=== PATIENT | male | born 1970 | race Caucasian/White ===

== ENCOUNTER 2021-10-30 02:56 | Inpatient (IN) ==
[2021-10-30] MEDS ORDERED: Ondansetron 4 MG/2 ML VIAL IVP PRN (10:40)
[2021-10-30] MEDS ORDERED: Naloxone 0.4 MG/ML INJ IVP PRN (10:40)
[2021-10-30] MEDS: Pantoprazole 40 MG VIAL IVP SCH (18:00)
[2021-10-30] MEDS: *HR* LORazepam 2 MG/ML VIAL IVP PRN (21:34)
[2021-10-31] MEDS ORDERED: QUEtiapine Fumarate 25 MG TABLET PO ONE (01:14)
[2021-10-31 01:25] LABS: Basophils % 0.7 %; Eosinophils # 0.5 K/mcL (0.0-0.6); Eosinophils % 8.9 %; Hematocrit 39.9 % (37.5-50.1); Hemoglobin 12.7 g/dL (12.9-16.9); Immature Granulocytes % 0.2 % (0-4); Lymphocytes # 2.3 K/mcL (0.6-4.6); Lymphocytes % 41.7 %; Mean Corpuscular HGB Conc 31.8 g/dL (31.6-35.5); Mean Corpuscular Hemoglobin 30.2 pg (28.0-33.3); Mean Platelet Volume 10.8 fL (9.4-12.4); Monocytes # 0.6 K/mcL (0.0-1.3); Monocytes % 10.5 %; Neutrophils # 2.1 K/mcL (1.6-8.9); Platelet Count 185 K/mcL (140-400); Red Cell Distribution Width 12.8 % (11.5-14.5); White Blood Count 5.5 K/mcL (4.3-11.1)
[2021-10-31 01:31] LABS: INR 0.9; Prothrombin Time 10.3 Seconds (9.4-12.1)
[2021-10-31 01:44] LABS: Alanine Aminotransferase 9 Units/L (7-52); Albumin 3.6 g/dL (3.5-5.7); Albumin/Globulin Ratio 1.6 (1.1-2.2); Alkaline Phosphatase 59 Units/L (34-104); Aspartate Amino Transferase 11 Units/L (13-39); BUN/Creatinine Ratio 15 (6-26); Bilirubin,Total 0.3 mg/dL (0.3-1.0); Blood Urea Nitrogen 15 mg/dL (6-20); Calcium 9.1 mg/dL (8.6-10.3); Carbon Dioxide 23 mEq/L (23-29); Chloride 107 mEq/L (98-107); Globulin 2.2 g/dL (2.4-3.5); Glucose 102 mg/dL (70-105); Osmolality,Calculated 285 (280-300); Phosphorous 3.3 mg/dL (2.7-4.5); Sodium 137 mEq/L (136-145); Total Protein 5.8 g/dL (6.4-8.9); eGFR For African Americans > 60 (> 60); eGFR For Non-African Americans > 60 (> 60)
[2021-10-31] MEDS: Pantoprazole 40 MG VIAL IVP SCH ×2 (05:40→17:34)
[2021-10-31] MEDS ORDERED: Bisacodyl 10 MG RECTAL SUPPOSITORY RC PRN (14:14)
[2021-10-31] MEDS ORDERED: haloperidoL 1 MG TABLET PO PRN (16:19)
[2021-10-31] MEDS ORDERED: *HR* LORazepam 1 MG TABLET PO PRN (16:37)
[2021-10-31] MEDS: polyethylene glycoL 3350 17 GM POWD.PACK PO SCH (17:34)
[2021-10-31] MEDS: *HR* LORazepam 2 MG/ML VIAL IVP PRN ×2 (17:34→23:45)
[2021-10-31] MEDS: *HR* HYDROcodone/Acet 5/325 mg TABLET PO PRN (21:17)
[2021-10-31] MEDS: QUEtiapine Fumarate 25 MG TABLET PO PRN (22:50)
[2021-11-01] MEDS: Pantoprazole 40 MG VIAL IVP SCH ×2 (06:13→18:04)
[2021-11-01] MEDS: Acetaminophen 325 MG TABLET PO PRN ×2 (07:45→09:35)
[2021-11-01] MEDS: polyethylene glycoL 3350 17 GM POWD.PACK PO SCH ×2 (07:45→07:49)
[2021-11-01] MEDS ORDERED: haloperidoL 1 MG TABLET PO ONE (08:50)
[2021-11-01 10:14] LABS: Bilirubin,Urine Negative (Negative); Blood,Urine Negative (Negative); Clarity,Urine Clear (Clear); Color,Urine Colorless (Yellow); Glucose,Urine (UA) Normal (Normal); Ketones,Urine Negative (Negative); Leukocyte Esterase,Urine Negative (Negative); Nitrite,Urine Negative (Negative); Protein,Urine Negative (Neg-Trace); Urobilinogen,Urine Normal (Normal)
[2021-11-01 11:56] LABS: Amphetamine Screen,Urine Negative ng/mL (Cutoff=1000); Barbiturate Screen,Urine Negative ng/mL (Cutoff=200); Benzodiazepines Screen,Urine Negative ng/mL (Cutoff=200); Cannabinoid Screen,Urine Negative ng/mL (Cutoff = 50); Cocaine Screen,Urine Negative ng/mL (Cutoff= 300); Opiate Screen,Urine Negative ng/mL (Cutoff=300); Phencyclidine Screen,Urine Negative ng/mL (Cutoff=25)
[2021-11-01 16:53] LABS: Basophils % 0.3 %; Eosinophils # 0.3 K/mcL (0.0-0.6); Eosinophils % 2.3 %; Hemoglobin 13.1 g/dL (12.9-16.9); Immature Granulocytes % 0.3 % (0-4); Lymphocytes # 1.9 K/mcL (0.6-4.6); Lymphocytes % 16.4 %; Mean Corpuscular HGB Conc 32.8 g/dL (31.6-35.5); Mean Corpuscular Hemoglobin 30.1 pg (28.0-33.3); Mean Platelet Volume 10.8 fL (9.4-12.4); Monocytes # 0.9 K/mcL (0.0-1.3); Monocytes % 7.5 %; Neutrophils # 8.5 K/mcL (1.6-8.9); Platelet Count 172 K/mcL (140-400); Red Blood Count 4.35 M/mcL (4.19-5.50); Red Cell Distribution Width 12.4 % (11.5-14.5); Segmented Neutrophils % 73.2 %
[2021-11-01 16:56] LABS: White Blood Count 11.6 K/mcL (4.3-11.1)
[2021-11-01] MEDS ORDERED: SODIUM CHLORIDE/NAHCO3/KCL/PEG 4,000 ML SOLN.RECON PO ONE (17:00)
[2021-11-01 17:11] LABS: BUN/Creatinine Ratio 22 (6-26); Blood Urea Nitrogen 21 mg/dL (6-20); Calcium 9.3 mg/dL (8.6-10.3); Carbon Dioxide 26 mEq/L (23-29); Chloride 104 mEq/L (98-107); Glucose 85 mg/dL (70-105); Osmolality,Calculated 284 (280-300); Potassium 3.9 mEq/L (3.5-5.1); Sodium 136 mEq/L (136-145); eGFR For African Americans > 60 (> 60); eGFR For Non-African Americans > 60 (> 60)
[2021-11-01] MEDS ORDERED: Azithromycin 500 MG in D5% in Water 250 ML IVPB SCH (20:00)
[2021-11-01] MEDS: *HR* HYDROcodone/Acet 5/325 mg TABLET PO PRN (22:39)
[2021-11-01] MEDS: cefTRIAXone 1,000 MG in 0.9 % Sodium Chloride Mini Bag 100 ML IVPB SCH (22:40)
[2021-11-01] MEDS: QUEtiapine Fumarate 25 MG TABLET PO PRN (22:40)
[2021-11-02] MEDS: Pantoprazole 40 MG VIAL IVP SCH ×2 (06:33→18:01)
[2021-11-02] MEDS: polyethylene glycoL 3350 17 GM POWD.PACK PO SCH (07:45)
[2021-11-02] MEDS: Ipratropium/Albuterol Neb 3 ML IH PRN (09:02)
[2021-11-02] MEDS: OLANZapine 5 MG TAB.RAPDIS PO SCH ×3 (18:02→22:31)
[2021-11-02] MEDS: Azithromycin 250 MG TABLET PO SCH (18:02)
[2021-11-02] MEDS ORDERED: *HR* LORazepam 1 MG TABLET PO PRN (18:27)
[2021-11-02] MEDS ORDERED: *HR* LORazepam 2 MG/ML VIAL IM PRN (18:27)
[2021-11-02] MEDS: cefTRIAXone 1,000 MG in 0.9 % Sodium Chloride Mini Bag 100 ML IVPB SCH (20:54)
[2021-11-02] MEDS: QUEtiapine Fumarate 25 MG TABLET PO PRN (22:30)
[2021-11-03] MEDS: Pantoprazole 40 MG VIAL IVP SCH ×2 (05:26→16:43)
[2021-11-03] MEDS: polyethylene glycoL 3350 17 GM POWD.PACK PO SCH (07:31)
[2021-11-03] MEDS: OLANZapine 5 MG TAB.RAPDIS PO SCH ×3 (07:31→19:52)
[2021-11-03] MEDS: *HR* LORazepam 2 MG/ML VIAL IVP PRN ×2 (12:30→19:16)
[2021-11-03] MEDS ORDERED: *HR* LORazepam 2 MG/ML VIAL IM STA (12:43)
[2021-11-03] MEDS ORDERED: Haloperidol Lactate 5 MG/ML VIAL IM ONE (15:07)
[2021-11-03] MEDS: Azithromycin 250 MG TABLET PO SCH (15:24)
[2021-11-03] MEDS: Ipratropium/Albuterol Neb 3 ML IH PRN (19:24)
[2021-11-03] MEDS: cefTRIAXone 1,000 MG in 0.9 % Sodium Chloride Mini Bag 100 ML IVPB SCH (19:52)
[2021-11-03] MEDS: Acetaminophen 325 MG TABLET PO PRN (19:55)
[2021-11-03 20:46] LABS: Basophils # 0.1 K/mcL (0.0-0.2); Basophils % 0.8 %; Eosinophils # 0.6 K/mcL (0.0-0.6); Eosinophils % 9.4 %; Hematocrit 41.4 % (37.5-50.1); Hemoglobin 13.9 g/dL (12.9-16.9); Immature Granulocytes % 0.3 % (0-4); Lymphocytes # 1.6 K/mcL (0.6-4.6); Lymphocytes % 23.9 %; Mean Corpuscular HGB Conc 33.6 g/dL (31.6-35.5); Mean Corpuscular Hemoglobin 31.2 pg (28.0-33.3); Mean Corpuscular Volume 92.8 fL (83.0-100.0); Mean Platelet Volume 11.4 fL (9.4-12.4); Monocytes # 0.6 K/mcL (0.0-1.3); Monocytes % 9.4 %; Neutrophils # 3.7 K/mcL (1.6-8.9); Platelet Count 201 K/mcL (140-400); Red Blood Count 4.46 M/mcL (4.19-5.50); Red Cell Distribution Width 12.5 % (11.5-14.5); Segmented Neutrophils % 56.2 %; White Blood Count 6.6 K/mcL (4.3-11.1)
[2021-11-03 21:29] LABS: BUN/Creatinine Ratio 20 (6-26); Blood Urea Nitrogen 18 mg/dL (6-20); Calcium 8.7 mg/dL (8.6-10.3); Carbon Dioxide 25 mEq/L (23-29); Chloride 106 mEq/L (98-107); Glucose 101 mg/dL (70-105); Osmolality,Calculated 288 (280-300); Potassium 3.5 mEq/L (3.5-5.1); Sodium 138 mEq/L (136-145); eGFR For African Americans > 60 (> 60); eGFR For Non-African Americans > 60 (> 60)
[2021-11-03] MEDS: QUEtiapine Fumarate 25 MG TABLET PO PRN (21:41)
[2021-11-04] MEDS: Pantoprazole 40 MG VIAL IVP SCH (05:46)
[2021-11-04] MEDS: OLANZapine 5 MG TAB.RAPDIS PO SCH ×2 (05:50→14:13)
[2021-11-04] MEDS: polyethylene glycoL 3350 17 GM POWD.PACK PO SCH (08:07)
[2021-11-04] MEDS ORDERED: Lidocaine -MPF 2% 5 ML VIAL ONE (11:05)
[2021-11-04 12:55] VITALS: O2SAT 96
[2021-11-04] MEDS: Azithromycin 250 MG TABLET PO SCH (14:13)
[2021-11-04] MEDS: *HR* LORazepam 2 MG/ML VIAL IVP PRN (14:26)
[2021-11-04 16:59] VITALS: BP 104/67; PULSE 76; TEMP 98.3
== END 2021-11-04 18:04 | disposition home or self-care (01) | DRG 254 ==
LOC: 3BNU → SUATTDRO 10:33
PROVIDERS: ADMIT Internal Medicine; ATTEND General Practice
PROC: ENDOEBX (2021-11-04 11:40)